=== PATIENT | female | born 1980 | race Caucasian/White ===

== ENCOUNTER 2017-11-27 10:55 | Emergency (ER) | payer SELFPAY ==
[2017-11-27 10:57] VITALS: BP 135/89; PULSE 110; RESP 18; TEMP 36.6; O2SAT 98; BMI 25.4
[2017-11-27 11:46] LABS: Color, Urine Yellow (Yellow); Glucose, Dipstick Normal (Normal); Ketone-Dipstick 5 mg/dl (Negative); Leukocyte Esterase-Dipstick 500 /ul (Negative); Nitrite-Dipstick Positive (Negative); Occult Blood-Urine 150 /ul (Negative); Protein-Dipstick 30 mg/dl (Negative); Specific Gravity, Urine 1.025 (1.002-1.030); Urine Clarity Cloudy (Clear); Urine Urobilinogen 1 mg/dl (Normal)
[2017-11-27 11:55] LABS: Urine Bilirubin Dipstick 1 mg/dL (Negative)
[2017-11-27 11:56] LABS: Bacteria 2+ /hpf (None Seen); Mucous, Urine 2+ /hpf (<or=2+); Red Blood Cells-Urine 0-5 SEEN /hpf (0-5); Squamous Epithelial Cells - UA 5-10 SEEN /hpf (5-10); White Blood Cells 25-50 SEEN /hpf (0-5)
--- NOTE | 2017-11-27 12:36 | ED.DCSUM_ITS ---
- ER Visit Summary Date of Service: 11/27/17 Chief Complaint: Urinary frequency and urgency History of Present Illness: The patient is a 36 F who presents with urinary frequency and urgency. She has a history of frequent UTIs. Symptoms began about 2 weeks ago. She also complains she was diagnosed with UTI on November 12 and treated with 1 week of Keflex. She states this seem to be helping initially but now she is worsening again. She denies vaginal bleeding or vaginal discharge her last menstrual period was November 05. No fevers nausea vomiting chest pain shortness of breath or abdominal pain. Physical Examination: Heart rate 110 vitals otherwise normal Patient resting comfortably no distress Moist mucous membranes Heart regular rhythm slightly tachycardic Lungs clear Abdomen soft nontender nondistended Test Results: UA shows 500 leukocyte esterase, positive nitrates, 25-50 WBCs Emergency Department Course and Treatment: Patient will be treated for UTI with Cipro. A urine culture was also sent. She was given a referral to establish a primary care physician. She understands return for new or worsening symptoms and was instructed on specific signs and symptoms to monitor for. Treatment Plan: [] Disposition: Discharge Impression: UTI This note was generated with [employer] dictation software. It may contain incorrect words, spelling, and punctuation that were not noted in review of the chart prior to signing ED Disposition - Plan for ED Patient: Chief Complaint: Complaint Referrals: [facility] Doctor,Out of [Primary Care Provider] -
--- NOTE | 2017-11-27 12:36 | ED.DEP ---
ED Disposition - Plan for ED Patient: Chief Complaint: Complaint Instructions: ED UTI Cystitis Female Prescriptions: Ciprofloxacin [Cipro] 500 mg PO BID #14 tab Referrals: [facility] Doctor,Out of [Primary Care Provider] - Maegan Gatica DO [NON-STAFF] -
--- NOTE | 2017-11-27 12:37 | DCINST.ED_ITS ---
ED Disposition - Plan for ED Patient: Chief Complaint: Complaint Instructions: ED UTI Cystitis Female Prescriptions: Ciprofloxacin [Cipro] 500 mg PO BID #14 tab Referrals: [facility] Doctor,Out of [Primary Care Provider] - Maegan Gatica DO [NON-STAFF] -
[2017-11-27 12:45] VITALS: BP 128/75; PULSE 95; RESP 14; O2SAT 98
== END 2017-11-27 12:45 | disposition home or self-care (01) ==
LOC: ED 11:36
PROVIDERS: Emergency Provider Emergency Medicine
DX: N39.0 Urinary tract infection, site not specified (principal); Z72.0 Tobacco use
CPT/HCPCS: 81001; 87086; 87088; 87186; 99282